=== PATIENT | female | born 1990 | race Caucasian/White ===

== ENCOUNTER 2023-04-11 18:46 | Emergency (ER) | payer BC, SELFPAY ==
[2023-04-11 18:54] VITALS: BP 127/86; PULSE 60; RESP 16; TEMP 36.5; O2SAT 100; BMI 46.3
--- NOTE | 2023-04-11 19:09 | CRLHL7_ITS ---
For Patients: As a result of the Century Cures Act, medical imaging exams and procedure reports are released immediately into your electronic medical record. You may view this report before your referring provider. If you have questions, please contact your health care provider. INDICATION: Stepped on nail, foot pain. TECHNIQUE: Right foot 3 views. Permanently recorded images are archived. COMPARISON: None. FINDINGS: No acute fracture or aggressive osseous lesion. Alignment is normal. The joint spaces are preserved. The soft tissues are unremarkable. IMPRESSION: No evidence of an acute bony abnormality. No radiopaque foreign body identified. Dictated by Carlos Johnson MD @ 04/11/2023 8:30:12 PM (Electronically Signed)
--- NOTE | 2023-04-11 20:43 | ED.GENADULT ---
HPI - General Adult General Date Seen: 04/11/23 Chief complaint: Skin/Abscess/Foreign Body Stated complaint: R foot, stepped on chalino nail Time Seen by Provider: 04/11/23 19:09 Source: patient Mode of arrival: ambulatory Limitations: no limitations History of Present Illness HPI narrative: The patient is a 32-year-old female presented emergency department after stepping on a nail 2 days ago. She states she was toxic a of that time in the to the nail out. She was not concerned about it until she talked to her parents and they told her she had come to emergency department to be evaluated. She is up-to-date on her tetanus. She does have some pain at the puncture site but there is no surrounding erythema at this time. No other concerns noted Related Data Home Medications Medication Instructions Recorded Confirmed Ozempic 04/11/23 buproprion 04/11/23 escitalopram oxalate 04/11/23 minocycline 04/11/23 Previous Rx's Medication Instructions Recorded levofloxacin 750 mg tablet 750 mg PO Q24H #5 tabs 04/11/23 Allergies Allergy/AdvReac Type Severity Reaction Status Date / Time penicillins Allergy Severe Uncoded 04/11/23 18:58 Review of Systems Narrative: Negative unless stated in HPI Exam Narrative: Exam Narrative: Const: Well-nourished, Well-developed, in mild distress Eyes: PERRL, no conjunctival injection, and symmetrical lids HENT: Atraumatic external nose and ears. Moist mucous membranes. MSK:Extremities w/o deformity, Normal Active ROM Skin: Warm, Dry. Small puncture wound noted at the heel of the right foot with no surrounding erythema Neuro: Normal Muscle tone, No focal neurological deficits. Psych: Awake, Alert, & Oriented x3. Appropriate mood and affect. Const: Vital Signs, click to edit/add: Vital Signs - 24 hr 04/11/23 18:54 Temperature 97.7 F Pulse Rate [Pulse Oximeter] 60 Respiratory Rate 16 Blood Pressure [Ri ght Upper Arm] 127/86 Pulse Oximetry 100 Oxygen Delivery Me thod Room Air Course Vital Signs Vital signs: Initial Vital Signs Temperature 97.7 F 04/11/23 18:54 Temperature Source Temporal Artery Scan 04/11/23 18:54 Pulse Rate 60 04/11/23 18:54 Respiratory Rate 16 04/11/23 18:54 Blood Pressure 127/86 04/11/23 18:54 Blood Pressure Mean 99 04/11/23 18:54 Blood Pressure Position Sitting 04/11/23 18:54 Pulse Oximetry 100 04/11/23 18:54 Oxygen Delivery Method Room Air 04/11/23 18:54 Vital Signs Temperature 97.7 F 04/11/23 18:54 Pulse Rate 60 04/11/23 18:54 Respiratory Rate 16 04/11/23 18:54 Blood Pressure 127/86 04/11/23 18:54 Pulse Oximetry 100 04/11/23 18:54 Oxygen Delivery Method Room Air 04/11/23 18:54 Temperature 97.7 F 04/11/23 18:54 Pulse Rate 60 04/11/23 18:54 Respiratory Rate 16 04/11/23 18:54 Blood Pressure 127/86 04/11/23 18:54 Pulse Oximetry 100 04/11/23 18:54 Oxygen Delivery Method Room Air 04/11/23 18:54 Medical Decision Making MDM Narrative Medical decision making narrative: Patient is a 32 female presenting after stepping on a nail 2 days ago. Nail has been removed. She is up-to-date on tetanus. X-ray of the foot was ordered as no acute abnormalities were seen. Since it was a puncture wound through the foot we will plan on prophylactic antibiotics. We will cover for Pseudomonas and start her on Levaquin. She is agreeable to this plan. Discharge Plan Discharge Clinical Impression: Puncture wound Patient Disposition: Home, Self-Care Condition: Stable Instructions: Puncture Wound in the Foot (ED) Additional Instructions: Take the antibiotics as directed. Return for new or worsening symptoms Prescriptions: New levofloxacin 750 mg tablet 750 mg PO Q24H Qty: 5 0RF No Action buproprion escitalopram oxalate minocycline Ozempic Follow Up/Referrals: Provider,Not a Local [Primary Care Provider] - Stand Alone Forms: [facility] Info Instructions
== END 2023-04-11 21:11 | disposition home or self-care (01) ==
PROVIDERS: Emergency Provider Student in an Organized Health Care Education/Training Program
DX: S91.331A Puncture wound without foreign body, right foot, initial encounter (principal); W22.8XXA Striking against or struck by other objects, initial encounter
CPT/HCPCS: 73630; 99282; 99283

== ENCOUNTER 2024-05-17 17:57 | Emergency (ER) | payer BC, SELFPAY ==
[2024-05-17 18:17] VITALS: BP 142/99; PULSE 83; RESP 16; TEMP 36.3; O2SAT 98; BMI 53.0
--- NOTE | 2024-05-17 18:49 | CRLHL7_ITS ---
For Patients: As a result of the Century Cures Act, medical imaging exams and procedure reports are released immediately into your electronic medical record. You may view this report before your referring provider. If you have questions, please contact your health care provider. Indication: Posterior pain. Technique: CT of the temporal bones performed without IV contrast. Comparison: None relevant available at this institution. Findings: RIGHT: The external auditory canal is patent. The tympanic membrane is not thickened. The mesotympanum is well aerated. The scutum is sharp. Ossicles are intact without evidence of erosion. The epitympanum and mastoid air cells appear clear. The inner ear structures including the cochlea, semicircular canals, vestibule and vestibular aqueduct appear unremarkable. Osseous IAC is intact. The path of the facial nerve canal is preserved. LEFT: The external auditory canal is patent. The tympanic membrane is not thickened. The mesotympanum is well aerated. The scutum is sharp. Ossicles are intact without evidence of erosion. The epitympanum and mastoid air cells appear clear. The inner ear structures including the cochlea, semicircular canals, vestibule and vestibular aqueduct appear unremarkable. Osseous IAC is intact. The path of the facial nerve canal is preserved. OTHER: The visualized portions of the brain, orbits and upper soft tissue neck are grossly negative. There is a nonspecific 1.3 cm soft tissue density posterior to the right mastoid within the superficial, subcutaneous fat. There is a smaller, 0.8 cm nodule on the left in similar location. No drainable fluid collection identified. Impression: 1. Oxubu-aabsmao-zixw-left soft tissue densities within the superficial, subcutaneous fat posterior to the mastoid air cells bilaterally. These could represent inflamed sebaceous cysts. No drainable abscess identified. 2. Otherwise unremarkable CT of the temporal bones. No evidence of mastoid opacification. Please note that all CT scans at this facility use dose modulation, iterative reconstruction, and/or weight-based dosing when appropriate to reduce radiation dose to as low as reasonably achievable. Dictated by Avi Kat MD @ 05/17/2024 7:20:52 PM (Electronically Signed)
--- NOTE | 2024-05-17 18:52 | ED_ITS ---
HPI - General Adult General Chief complaint: Ear/Nose/Throat Problem Stated complaint: Pain behind both ears-hx of mastoiditis Time Seen by Provider: 05/17/24 18:04 History of Present Illness HPI narrative: This 34-year-old female comes in reporting pain in the posterior aspect of both ears and is concerned about mastoiditis. She arrives here with normal vital signs. She did have cold symptoms last week and someone close to her was diagnosed with pneumonia so her primary doctor in the [facility] called in a prescription for Zithromax for her. She is finishing the last dose today or tomorrow. She has developed some pain in the posterior aspect of both years and pain in the area of the mastoid prominence. She does not have any drainage from either ear. Related Data Home Medications ?Medication ?Instructions ?Recorded ?Confirmed Ozempic 04/11/23 buproprion 04/11/23 escitalopram oxalate 04/11/23 minocycline 04/11/23 Previous Rx's ?Medication ?Instructions ?Recorded levofloxacin 750 mg tablet 750 mg PO Q24H #5 tabs 04/11/23 methylprednisolone 4 mg tablets in See Rx Instructions PO .COMPLEX 05/17/24 a dose pack (Medrol (Marvin)) #21 ea Allergies Allergy/AdvReac Type Severity Reaction Status Date / Time penicillins Allergy Severe Uncoded 04/11/23 18:58 Review of Systems Status of ROS: Reports: 10 or more systems reviewed and unremarkable except as noted in History and below Narrative: Constitutional: No fevers, no weight gain or loss. Eyes: No discharge. No vision changes. HENT: No congestion, no sore throat. Bilateral ear pain. Cardiovascular: No chest pain, no palpitations. Respiratory: No shortness of breath, no wheezes, no cough. Gastrointestinal: No abdominal pain, no vomiting, no diarrhea. Genitourinary: No dysuria, no hematuria. Musculoskeletal: Normal range of motion. Skin: No rashes, no pruritis. Neurological: No dizziness, weakness, sensory change, speech change. Endo/Heme/Allergies: No bruising or bleeding. No polydipsia. Pysch: no suicidality, no anxiety, no insomnia. All other systems reviewed and are negative. PFSH PFSH Social History Smoking Status: Current some day smoker What tobacco products do you use: cigarettes How often do you have a drink containing alcohol: 2-4 times a month AUDIT-C Alcohol total score: 2 Non-prescribed substance use: marijuana (any form) Exam Narrative: Exam Narrative: Constitutional: Well-developed, well-nourished, no acute distress. HEENT: Normocephalic, atraumatic. Tympanic membranes appear normal bilaterally. Ear canals also appear normal bilaterally. There is no erythema or drainage. The skin overlying the mastoid process behind each ear also appears normal without any erythema. Neck: Normal range of motion. Nontender. Supple. Heart: Regular. No murmurs. Normal rate. Intact distal pulses. Lungs: Clear to auscultation. No chest discomfort. No wheezes, rhonchi, or rales. Abdomen: Normal bowel sounds. Nontender. No rebound tenderness. Genitalia: Deferred. Back: No midline tenderness. Normal range of motion. Extremities: Normal range of motion. No injury. Skin: Intact. No rash. Warm. No erythema or pallor. Neurologic: No altered sensation. No weakness. Alert and oriented. Psychiatric: No suicidality. No anxiety or depression. No insomnia. Nursing notes and vitals signs are reviewed. Const: Vital Signs, click to edit/add: Vital Signs - 24 hr 05/17/24 18:17 Temperature 97.4 F L Pulse Rate [Pulse Oximeter] 83 Respiratory Rate 16 Blood Pressure [Ri ght Upper Arm] 142/99 H Pulse Oximetry 98 Oxygen Delivery Me thod Room Air Course Vital Signs Vital signs: Initial Vital Signs Temperature 97.4 F L 05/17/24 18:17 Temperature Source Temporal Artery Scan 05/17/24 18:17 Pulse Rate 83 05/17/24 18:17 Respiratory Rate 16 05/17/24 18:17 Blood Pressure 142/99 H 05/17/24 18:17 Blood Pressure Mean 113 H 05/17/24 18:17 Blood Pressure Position Sitting 05/17/24 18:17 Pulse Oximetry 98 05/17/24 18:17 Oxygen Delivery Method Room Air 05/17/24 18:17 Vital Signs Temperature 97.4 F L 05/17/24 18:17 Pulse Rate 83 05/17/24 18:17 Respiratory Rate 16 05/17/24 18:17 Blood Pressure 142/99 H 05/17/24 18:17 Pulse Oximetry 98 05/17/24 18:17 Oxygen Delivery Method Room Air 05/17/24 18:17 Temperature 97.4 F L 05/17/24 18:17 Pulse Rate 83 05/17/24 18:17 Respiratory Rate 16 05/17/24 18:17 Blood Pressure 142/99 H 05/17/24 18:17 Pulse Oximetry 98 05/17/24 18:17 Oxygen Delivery Method Room Air 05/17/24 18:17 Medical Decision Making MDM Narrative Medical decision making narrative: This patient comes in with pain in the posterior aspect of both of her ears. She is rather anxious about the possibility of a mastoiditis. Her exam is completely normal. Given her anxiety she is interested in having imaging to evaluate this. CT scan of this area shows no acute findings. She does have some sebaceous cyst type structures in the soft tissues overlying the posterior aspect of both of these mastoid prominence is. The patient is currently taking Zithromax. She is okay to be discharged home. I did provide an [facility] prescription for Toradol and a prescription from her pharmacy for Medrol Dosepak. Imaging Data CT scan - head: Radiologist's impression: 1. Dqwat-ucaryer-ixlt-left soft tissue densities within the superficial, subcutaneous fat posterior to the mastoid air cells bilaterally. These could represent inflamed sebaceous cysts. No drainable abscess identified. 2. Otherwise unremarkable CT of the temporal bones. No evidence of mastoid opacification. Discharge Plan Discharge Clinical Impression: Otalgia of both ears Additional Instructions: Take medication as needed and indicated. Follow up with MD return if worsening symptoms occur. Prescriptions: New methylprednisolone [Medrol (Marvin)] 4 mg tablets,dose pack See Rx Instructions .ROUTE .COMPLEX Qty: 21 0RF Rx Instructions: orally per package directions No Action buproprion escitalopram oxalate minocycline Ozempic levofloxacin 750 mg tablet 750 mg PO Q24H Qty: 5 0RF Follow Up/Referrals: Provider,Not a Local [Primary Care Provider] -
== END 2024-05-17 20:04 | disposition home or self-care (01) ==
LOC: ED 19:34
PROVIDERS: Emergency Provider Emergency Medicine Emergency Medical Services
DX: H92.03 Otalgia, bilateral (principal)
CPT/HCPCS: 70480; 99283; 99284

== ENCOUNTER 2024-12-09 20:40 | Emergency (ER) | payer OTHER, SELFPAY ==
--- OUTSIDE RECORDS SUMMARY | 2024-12-09 20:42 | XMS_ITS | Clinical Summary ---
Author Organization [employer] [facility] Address [facility] [place] [address] Care Team Providers Care Industrial Energy Engineer Name Role Phone Dayron Bingham MD Primary Care Provider Allergies Active Allergy Reactions Criticality Noted Date Comments Penicillins Anaphylaxis High 05/17/2011 Patient reports my throat closes and I could from it Medications azelastine 137 mcg/actuation (ASTELIN) nasal sprayIndicatio ns:Seasonal allergic rhinitis, unspecified trigger,Left chronic serous otitis media Inhale 2 Sprays into affected nostril(s) two times daily. 30 mL 5 10/22/19 23 Active fluticasone (50 mcg per actuation) nasal solution (FLONASE)Indic ations:Left chronic serous otitis media Inhale 2 Sprays into affected nostril(s) once daily. 16 g 6 10/22/19 23 Active semaglutide (OZEMPIC) 2 mg/3 mL penIndications :Obesity, Class II, BMI 35-39.9 Inject 0.375 mL (0.25 mg) subcutaneous once weekly. 3 mL 3 02/11/20 23 Active semaglutide (Wegovy) 0.25 mg/0.5 mL penIndications :Obesity, Class II, BMI 35-39.9 Inject 0.25 mg subcutaneous once weekly. 2 mL 11 02/16/20 23 Active minocycline (MINOCIN) 100 mg capsuleIndicat ions:Acne vulgaris TAKE 1 CAPSULE(100 MG) BY MOUTH IN THE MORNING AND IN THE EVENING 60 Capsule 1 03/18/20 24 Active escitalopram oxalate 10 mg tabletIndicati ons:Anxiety,De pression, recurrent TAKE 1 TABLET(10 MG) BY MOUTH EVERY MORNING 90 Tablet 09/28/19 25 Active buPROPion 150 mg Extended-Relea se tabletIndicati ons:Depression , major, in remission TAKE 1 TABLET(150 MG) BY MOUTH EVERY MORNING 90 Tablet 11/20/19 25 Active buPROPion (WELLBUTRIN XL) 150 mg Extended-Relea se tabletIndicati ons:Depression , major, in remission TAKE 1 TABLET(150 MG) BY MOUTH EVERY MORNING 90 Tablet 03/27/20 24 025 Discontinued Active Problems Problem Noted Date Diagnosed Date Depression, major, in remission 09/28/2017 Headache 10/09/2014 Right ankle sprain 08/12/2014 Encounters Date Type Department Care Team Description 11/18/[address] [place] [address] Dayron Bingham MD Refill Request (Bupropion) 09/25/[address] [place] [address] Dayron Bingham MD Refill Request (Escitalopram Oxalate) from Last 3 Months Immunizations Immunization Administration Dates Next Due DTP 03/11/2002,04/18/1997 DTaP 05/19/1997, 4,1992,09/04,1992 HIB PRP-T (ActHIB,Hiberix) 09/14/1993,,1992,06/18 Hepatitis B (Adult) 01/04/1995,10/21/1994,1993 Hepatitis B (Peds) 01/04/1995,10/21/1994, 994 Human Papilloma Virus Vaccine 10/27/2016 MMR 02/08/1998,09/14/1993 Meningococcal Vaccine (Menactra) 11/23/2004 Oral Polio Vaccine 05/19/1997, 7,02/17/1994,09/04,1992 Polio Virus, Unspecified 04/18/1997 Td (Age >=7 Years) 02/20/2002 Td, Preservative Free (age >= 7 Years) 2 Tdap 08/04/2022,12/11/2012 Family History Medical History Relation Name Comments Hypertension Father Cancer Paternal Grandfather Diabetes Paternal Grandfather Heart Disease Paternal Grandfather Other Paternal Grandfather Blood c lots Relation Name Status Comments Father Paternal Grandfather Social History Tobacco Use Types Packs/Day Years Used Date Smoking Tobacco: Some Days Cigarettes Last attempted to quit: 06/08/2013 Smokeless Tobacco: Never Tobacco Cessation:Ready to Q uit: No; Counseling Given: Yes Comments:socially Alcohol Use Standard Drinks/Week Comments Yes 0 (1 standard drink = 0.6 oz pur e alcohol) Social/weekend drinker PHQ-2 Answer Date Recorded PHQ-2 TOTAL SCORE 3 08/04/2022 Social Connections Answer Date Recorded Frequency of Communication with Friends and Fami ly Not on file 08/11/2023 Financial Resource Strain Answer Date R ecorded Difficulty of Paying Living Expenses 3 08/04/2022 Difficulty of Paying Living Expenses Not on file 08/04/2022 Food Insecurity Answer Date Recorded Worried About Running Out of Food in the Last Ye ar 1 08/04/2022 Transportation Needs Answer Date Record ed Lack of Transportation (Medical) 1 08/04/2022 Housing Stability Answer Date Recorded Unable to Pay for Housing in the Last Year 1 08/04/2022 Comments No Sex and Gender Information Value Date Recorded Sex Assigned at Not on file Legal Sex Female 8:15 AM GLASS DEPOSITION TENDER Gender Identity Not on file Sexual Orientation Not on file 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 [employer] Not on file Not on file Not o n file Obstetrics History Para Term AB IAB SAB Ectopic Multiple Livin g Live Births 0 0 0 0 0 0 0 0 0 0 Last Filed Vital Signs Vital Sign Reading Time Taken Comments Blood Pressure 122/86 01/05/2023 8:56 AM CDT Pulse 68 01/05/2023 8:56 AM CDT Temperature 36.7 C (98.1 F) 10/21/2018 2:58 PM CDT Respiratory Rate 20 02/26/2021 4:12 PM CDT Oxygen Saturation 97% 08/04/2022 9:21 AM GLASS DEPOSITION TENDER Inhaled Oxygen Concentration - - Weight 122.2 kg (269 lb 4.8 oz) 01/05/2023 8:56 AM CDT Height 162.5 cm (5' 3.98) 08/04/2022 9:21 AM CS T Body Mass Index 46.26 08/04/2022 9:21 AM GLASS DEPOSITION TENDER Plan of Treatment Health Maintenance Due Date Last Done Comments Hepatitis C screening for ag e 18-79 2010 Pap test for age 21-65 2013 BMI (ht and wt on same day) for age 18+ 08/04/2023 08/04/2022, 2019, 02/22/2018, Additional history exists Depression screening for age 12+ 08/04/2023 08/04/2022, 2019, 03/30/2018, Additional history exists Influenza Vaccine (Season Ended) 2025 Tetanus booster 08/04/2032 08/04/2022, 06/0 09/2012, 12/11/2012, Additional history exists Hepatitis B series for 19+ Completed 01/04, 01/04/1995, 10/21/1994, Additional history exists HIV for age 15-65 Completed 02/11/2012 Tdap Completed 08/04/2022, 12/11/2012 COVID-19 vaccine series Discontinued Pneumococcal series for age 6-49 Discontinued Procedures Procedure Name Priority Date/Time Associated Diagnosis Comments ANTI HIV 1/2 Routine 02/11/2012 12:10 PM CDT Vaginal discharge from Last 3 Months or Most Recently Relevant to Health Maintenance Results * ANTI HIV 1/2 (02/11/2012 12:10 PM CDT) ANTI HIV 1/2 Non-reacti ve [facility] Blood specimen (specimen) BLOOD SPECIMEN / Unknown 02/11/2012 12:10 PM CDT 02/11/2012 12:10 PM CDT Nallely GRECO SEND OUTS Final Result [facility] [place]IP [id number] [place] [address] from Last 3 Months or Most Recently Relevant to Health Maintenance Insurance [facility] NON-OR-ITS Care Teams Industrial Energy Engineer Relationship Specialty Start Date End Date Dayron Bingham MD [facility] [place], [place] [address] PCP - General Internal Medicine 06/10/15
--- OUTSIDE RECORDS SUMMARY | 2024-12-09 20:42 | XMS_ITS | Clinical Summary ---
Author Organization [facility] Address [facility] [place] [address] Care Team Providers Care Talent Management Manager Name Role Phone Establish, Need To MD Primary Care Provider Source Comments If you need additional information that is not available on Care Everywhere, please contact our Medical Records Department during business hours (Tuesday - Tuesday, 8 am - 5 pm) at . During nonbusiness hours, please contact our Trauma and Emergency Center at .[facility] Allergies Active Allergy Reactions Criticality Noted Date Comments Penicillins Anaphylaxis,Unknown High 05/17/2011 Patient reports my throat closes and I could from it Medications * Medications may not be up to date as of this document. Always verify current medications with the patient. buPROPion XL (WELLBUTRIN XL) 150 mg extra long release tablet Take 1 Tablet (150 mg) by mouth every morning 12/16/2023 Active escitalopram (LEXAPRO) 10 mg tablet Take 1 Tablet (10 mg) by mouth daily 12/14/2023 Active minocycline 100 mg capsule Take 1 Capsule (100 mg) by mouth every 12 hours 09/19/2023 Active Social History Tobacco Use Types Packs/Day Years Used Date Smoking Tobacco: Some Days Cigarettes Smokeless Tobacco: Never Tobacco Cessation:Ready to Q uit: Not Asked; Counseling Given: Not Answered Comments No Sex and Gender Information Value Date Recorded Sex Assigned at Not on file Legal Sex Female 10:23 AM CDT Gender Identity Not on file Sexual Orientation Not on file Obstetrics History Last Filed Vital Signs Vital Sign Reading Time Taken Comments Blood Pressure 118/68 01/22/2024 12:29 PM CDT Pulse 118 01/22/2024 12:29 PM CDT Temperature 36.6 C (97.9 F) 01/22/2024 12:29 PM CDT Respiratory Rate 24 01/22/2024 12:29 PM CDT Oxygen Saturation 100% 01/22/2024 12:29 PM CDT Inhaled Oxygen Concentration - - Weight - - Height - - Body Mass Index - - Plan of Treatment Health Maintenance Due Date Last Done Comments DEPRESSION/ANXIETY PHQ4 2004 CERVICAL CANCER SCREENING 2010 LIPID SCREEN 2010 WELLNESS VISIT 2010 PERTUSSIS 2011 Pneumococcal Vaccine: Pediat rics (0 to 5 Years) and At-Risk Patients (6 to 49 Years) (1 of 2 - PCV) 2011 HPV Vaccine (2 - 3-dose series) 11/24/2016 7 COVID-19 Vaccine (2023-2 5 season) 2024 DIABETES SCREENING 01/21/2025 01/22/2024 Influenza Vaccine (Season Ended) 2025 DTaP/Tdap/Td Vaccine (8 - Td or Tdap) 08/04/2032 08/04/2022, 12/11/2012, 03/11/2002, Additional history exists RSV Vaccines (1 - 1-dose 75+ series) 2067 Hepatitis B Vaccine Completed 01/04/1995, 10/21/1994, 02/17/1994 POLIO (IPV) Vaccine Completed 05/19/1997, 04/18/1997, 02/17/1994, Additional history exists Procedures Procedure Name Priority Date/Time Associated Diagnosis Comments LAB GLUCOSE STAT 01/22/2024 11:26 AM CDT from Last 3 Months or Most Recently Relevant to Health Maintenance Results * (ABNORMAL) Glucose (01/22/2024 11:26 AM CDT) GLUCOSE 133(H) 70 - 99 mg/dL 01/22/2024 12:01 PM CDT [facility] Blood Venipuncture / Unknown 01/22/2024 11:26 AM CDT 01/22/2024 11:26 AM CDT us Claritza Pena NP CHEMISTRY ORDERABLES Final Re sult [facility] [address] [place] [address] from Last 3 Months or Most Recently Relevant to Health Maintenance Insurance [facility] INSURANCE OTHER STATES Care Teams Talent Management Manager Relationship Specialty Start Date End Date Establish, Need To, [address] [facility] [place] [address] PCP - General SECOND RIGGER 01/22/24
--- OUTSIDE RECORDS SUMMARY | 2024-12-09 20:42 | XMS_ITS | Clinical Summary ---
[facility] Organization [facility] Address [address] [place] [address] Care Team Providers Care Airplane Pilot Commercial Name Role Phone Clinician, Not Found MD Primary Care Provider Un available Source Comments You are receiving this document as you are listed as the primary care provider,follow-up provider, or the patient has been referred to you for consultation.This is in compliance with the Medicare and[facility] E[facility] Incentive Program,which states Providers who transition their patient to another setting of careor provider of care or refers their patient to another provider of care shouldprovide summary care record for each transition of care or referral. [employer] Allergies Active Allergy Reactions Criticality Noted Date Comments Penicillins Unknown 08/03/2014 Medications oxyCODONE-acetam inophen (AKA PERCOCET) 5-325 MG tablet Take 1-2 Tabs by mouth every 4 hours as needed for Pain. 15 Tab 0 08/03/2014 Active traMADol (ULTRAM) 50 MG tablet Take 1 Tablet (50 mg) by mouth every 6 hours as needed for Pain. 8 Tablet 07/27/2022 9:44 AM ASSET PROTECTION ASSOCIATE 07/27/2022 Active Social History Tobacco Use Types Packs/Day Years Used Date Smoking Tobacco: Every Day Alcohol Use Standard Drinks/Week Comments Yes 0 (1 standard drink = 0.6 oz pur e alcohol) Comments Unknown Sex and Gender Information Value Date Recorded Sex Assigned at Not on file Legal Sex Female 4:46 AM CDT Gender Identity Not on file Sexual Orientation Not on file Last Filed Vital Signs Vital Sign Reading Time Taken Comments Blood Pressure 117/65 07/27/2022 9:02 AM ASSET PROTECTION ASSOCIATE Pulse 83 07/27/2022 9:02 AM ASSET PROTECTION ASSOCIATE Temperature 36.6 C (97.8 F) 07/27/2022 2:37 AM ASSET PROTECTION ASSOCIATE Respiratory Rate 29 07/27/2022 9:02 AM ASSET PROTECTION ASSOCIATE Oxygen Saturation 97% 07/27/2022 9:02 AM ASSET PROTECTION ASSOCIATE Inhaled Oxygen Concentration - - Weight - - Height - - Body Mass Index - - Plan of Treatment Health Maintenance Due Date Last Done Comments Hep C Screening (Preventive Services) 1992 HIV Screening (Preventive Services) 2008 Cervical Cancer Screening Due 05/17/2009 05/16/2009, 05/29/2008 Adult Preventive Visit 2010 HepB Vaccine (1) 2011 Pneumococcal Vaccine (1 of 2 - PCV) 2011 HPV Vaccine (2 - 3-dose series) 11/24/2016 10/27/2016 DTaP/Tdap/Td Vaccine (7 - Tdap) 12/11/2022 12/11/2012, 03/11/2002, 02/20/2002, Additional history exists COVID-19 Vaccine ( - season) 2024 Influenza Vaccine (Season Ended) 2025 Zoster/Shingles Vaccine (1 of 2) 2042 Hib Vaccine Completed 09/14/1993, 10/10, 1992, Additional history exists IPV (Polio) Vaccine Completed 05/19/1997, 04/18/1997, 02/17/1994, Additional history exists MCV4 Vaccine Aged Out 11/23/2004 No longer eligi ble based on patient's age to complete this topic HepA Vaccine Aged Out No longer eligi ble based on patient's age to complete this topic Meningococcal B Vaccine Aged Out No l onger eligible based on patient's age to complete this topic Procedures Procedure Name Priority Date/Time Associated Diagnosis Comments ANATOMICAL PATH LIQUID BASED Routine 05/16/2009 7:30 AM ASSET PROTECTION ASSOCIATE from Last 3 Months or Most Recently Relevant to Health Maintenance Results * Pap Smear (05/16/2009 7:30 AM ASSET PROTECTION ASSOCIATE) PAP Smear Liquid Based SEE TEXT No normal range HP CONVERSION Comment: Patient: JOANNE EDGAR CERVICAL CYTOLOGY REPORT Pathology # [id number] Date Obtained: Date Received: [id number] CYTOLOGIC IMPRESSION: Negative for intraepithelial lesion or malignancy. Verified 05/26/09 by: Anjali Baeza M.D. (electronic signature) ADDITIONAL DATA LMP: CLINICAL HIST LIQUID BASED PAP CERVICAL SPECIMEN ADEQUACY: Satisfactory. ENDOCERVICAL CELLS: Present. 05/16/2009 7:30 AM ASSET PROTECTION ASSOCIATE us Kranthi Collins MD LAB_1 Final R esult HP CONVERSION from Last 3 Months or Most Recently Relevant to Health Maintenance Insurance BCBS OUT OF STATE Care Teams Airplane Pilot Commercial Relationship Specialty Start Date End Date Clinician, Not Found, [place] [address] PCP - General 12/05/15
[2024-12-09 20:56] VITALS: BP 127/97; PULSE 95; RESP 20; TEMP 36.4; O2SAT 98; BMI 51.3
--- NOTE | 2024-12-09 20:59 | ED_ITS ---
HPI - General Adult General Chief complaint: Cough Stated complaint: sore throat Time Seen by Provider: 12/09/24 20:59 History of Present Illness HPI narrative: Patient c/o chills, sore throat, ear pain, SOB, and dry cough since . Patient has been taking nyquil and dayquil. Patient states negative at home flu/covid test. 34-year-old woman presenting to the emergency department with concern of sore throat and ear pain in particular. Some cough, nonproductive as well. Symptoms over the last 3 days. Home flu and COVID test which was negative. Has been treating with [id number] medications like NyQuil and DayQuil. Really bad sore throat though and then pain in her ears as well. Works in healthcare. Dyspnea on exertion is a newer symptom Has not been able to sleep for the throat pain and ear pain. Emphasizes that is not congested in the nose. Does have anti allergy medication available for environmental/seasonal allergies Related Data Home Medications ?Medication ?Instructions ?Recorded ?Confirmed Ozempic 04/11/23 buproprion 04/11/23 escitalopram oxalate 04/11/23 minocycline 04/11/23 Previous Rx's ?Medication ?Instructions ?Recorded levofloxacin 750 mg tablet 750 mg PO Q24H #5 tabs 09/02 methylprednisolone 4 mg tablets in See Rx Instructions PO .COMPLEX 05/17/24 a dose pack (Medrol (Marvin)) #21 ea Allergies Allergy/AdvReac Type Severity Reaction Status Date / Time penicillins Allergy Severe Uncoded 04/11/23 18:58 Review of Systems Status of ROS: Reports: 6 or more systems reviewed and unremarkable except as noted in History and below PFSH PFS Social History Smoking Status: Former smoker What tobacco products do you use: cigarettes Smoking quit date/years: <= 15 years ago Do you use any of these nicotine containing products: None Second hand tobacco smoke exposure: No How often do you have a drink containing alcohol: 2-4 times a month AUDIT-C Alcohol total score: 2 Non-prescribed substance use: marijuana (any form) service: No Exam Narrative: Exam Narrative: full TMs bilaterally. Not inflamed. Sounds congested but she says because of her throat. Oropharynx is mildly erythematous without edema or asymmetry. Lungs sound clear. Cobblestoning in the oropharynx. Heart in elevated rate. Extremities are without edema. Const: Vital Signs, click to edit/add: Vital Signs - 24 hr 12/09/24 20:56 Temperature 97.5 F L Pulse Rate [Right Pulse Oximeter] 95 Respiratory Rate 20 Blood Pressure [Le ft Forearm] 127/97 H Pulse Oximetry 98 Oxygen Delivery Me thod Room Air Documenting provider has reviewed patient's vital signs: yes Course Vital Signs Vital signs: Initial Vital Signs Respiratory Effort Normal, Spontaneous, Non-Labored 12/09/24 20:40 Respiratory Depth Normal 12/09/24 20:40 Respiratory Pattern Normal 12/09/24 20:40 Vital Signs Temperature 97.5 F L 12/09/24 20:56 Pulse Rate 95 12/09/24 20:56 Respiratory Rate 20 12/09/24 20:56 Blood Pressure 127/97 H 12/09/24 20:56 Pulse Oximetry 98 12/09/24 20:56 Oxygen Delivery Method Room Air 12/09/24 20:56 Temperature 97.5 F L 12/09/24 20:56 Pulse Rate 95 12/09/24 20:56 Respiratory Rate 20 12/09/24 20:56 Blood Pressure 127/97 H 12/09/24 20:56 Pulse Oximetry 98 12/09/24 20:56 Oxygen Delivery Method Room Air 12/09/24 20:56 Medications Administered Medications: Discontinued Medications Generic Name Dose Route Start Last Admin Trade Name Freq PRN Reason Stop Dose Admin Prednisone 60 mg 12/09/24 21:17 12/09/24 21:29 Prednisone 20 Mg Tablet PO 12/09/24 21:18 60 mg ONCE ONE Administration Pseudoephedrine HCl 60 mg 12/09/24 21:17 12/09/24 21:29 Pseudoephedrine Hcl 30 Mg Tablet PO 12/09/24 21:18 60 mg ONCE ONE Administration Medical Decision Making [facility] Narrative Medical decision making narrative: Given duration of symptoms and unusual exertional shortness of breath I did opt to proceed with a chest x-ray. Looking simply for evidence of pneumonia. I do not think has cardiac etiology to her dyspnea. I think symptoms simply could be explained by inflammation related to URI otherwise. In addition seasonal/environmental allergies. With independent review of chest x-ray I do not see clear infiltrate. Radiology over-read below Indication: Shortness of breath and cough. Technique: Chest 1 view. Comparison: None. Findings/Impression: The heart is not abnormally enlarged. Mediastinal contours are grossly within normal limits. Minimal patchy retrocardiac opacification likely reflecting atelectasis, however developing infectious process is not excluded in the appropriate clinical context. No pleural effusion or pneumothorax. No acute osseous abnormality. Dictated by Davian Wiseman MD @ 12/09/2024 10:29:25 PM See patient discharge plan for further discussion It sounds like you are treating your environmental/seasonal allergies well with oral and nasal sprays. You might further be helped by taking pseudoephedrine. I like the 12 hour formulation myself. This can help decongest. Sleep on the mist of a cool mist humidifier. Menthol vapors might be helpful. Neti pot nasal saline rinses might be helpful. Your pharyngitis I think some of it is related to postnasal drip as well as whatever infection you have going on. For this though and the irritation is seems to be present in your lungs, I would also like to prescribe some prednisone. You do not need to take any more prednisone tonight. Can still take up to 800 mg of ibuprofen up to 1000 mg of acetaminophen per dose. As discussed, a few tabs of [place] as well due to the degree of discomfort your having in your ears. Medical Records Medical records reviewed: Yes I reviewed the patient's medical records Discharge Plan Discharge Clinical Impression: Otalgia, Pharyngitis, Dysfunction of eustachian tube, URI (upper respiratory infection) Patient Disposition: Home, Self-Care Condition: Stable Instructions: Pharyngitis (ED) Additional Instructions: It sounds like you are treating your environmental/seasonal allergies well with oral and nasal sprays. You might further be helped by taking pseudoephedrine. I like the 12 hour formulation myself. This can help decongest. Sleep on the mist of a cool mist humidifier. Menthol vapors might be helpful. Neti pot nasal saline rinses might be helpful. Your pharyngitis I think some of it is related to postnasal drip as well as whatever infection you have going on. For this though and the irritation is seems to be present in your lungs, I would also like to prescribe some prednisone. You do not need to take any more prednisone tonight. Can still take up to 800 mg of ibuprofen up to 1000 mg of acetaminophen per dose. As discussed, a few tabs of [place] as well due to the degree of discomfort your having in your ears. Prescriptions: No Action buproprion escitalopram oxalate minocycline Ozempic levofloxacin 750 mg tablet 750 mg PO Q24H Qty: 5 0RF methylprednisolone [Medrol (Marvin)] 4 mg tablets,dose pack See Rx Instructions .ROUTE .COMPLEX Qty: 21 0RF Rx Instructions: orally per package directions Follow Up/Referrals: Provider,Not a Local [Primary Care Provider, Family Practice] Stand Alone Forms: [email or web address] Info Instructions
--- NOTE | 2024-12-09 21:18 | CRLHL7_ITS ---
For Patients: As a result of the Cures Act, medical imaging exams and procedure reports are released immediately into your electronic medical record. You may view this report before your referring provider. If you have questions, please contact your health care provider. Indication: Shortness of breath and cough. Technique: Chest 1 view. Comparison: None. Findings/Impression: The heart is not abnormally enlarged. Mediastinal contours are grossly within normal limits. Minimal patchy retrocardiac opacification likely reflecting atelectasis, however developing infectious process is not excluded in the appropriate clinical context. No pleural effusion or pneumothorax. No acute osseous abnormality. Dictated by Davian Wiseman MD @ 12/09/2024 10:29:25 PM (Electronically Signed)
[2024-12-09] MEDS: predniSONE 20 MG TABLET 60 MG PO (21:29)
[2024-12-09] MEDS: PSEUDOEPHEDRINE HCL 30 MG TABLET 60 MG PO (21:29)
== END 2024-12-09 22:34 | disposition home or self-care (01) ==
PROVIDERS: Emergency Provider Family Medicine
DX: H92.03 Otalgia, bilateral (principal); H69.93 Unspecified Eustachian tube disorder, bilateral; J02.9 Acute pharyngitis, unspecified; J06.9 Acute upper respiratory infection, unspecified
CPT/HCPCS: 71046; 99284; A9270; J7512